=== PATIENT | male | born 1965 | race African-American/Black ===

== ENCOUNTER 2016-07-13 11:48 | Emergency (ER) | payer OTHER ==
[~2016-07-13] VITALS: Ht 190.5 cm; Wt 108.9 kg
[~2016-07-13 11:48] MED LIST: BACTRIM DS TAB1 EACH PO; CIPRO500 M1 PO; DICLOFENAC SODI75 M2 PO; MEDROL4 M2 PO; PEPCID20 M1 PO; PYRIDIUM200 M1 PO
[2016-07-13 11:56] VITALS: BP 160/99
--- NOTE | 2016-07-13 14:29 | ED SKIN/ALLERGY COMPLAINT ---
History of Present Illness General Chief Complaint: Skin Rash/ Abcess Stated Complaint: ?ABSCESS UNDER LEFT ARMPIT Source: patient Exam Limitations: no limitations Vital Signs & Intake/Output Vital Signs & Intake/Output Vital Signs Date Time Temp Pulse Resp B/P Pulse O2 O2 Flow FiO2 Ox Delivery Rate 07/13 1156 98.2 101 18 160/99 99 Room Air Allergies Coded Allergies: No Known Allergies (12/19/15) Reconcile Medications Amoxicillin 500 MG CAPSULE 1 CAP PO TID INFECTION Famotidine (Pepcid) 20 MG TABLET 1 TAB PO BID ALLERGY Methylprednisolone. (Medrol) 4 MG TAB.DS.PK 1 DP PO AD INFLAMMATION 6 on day 1 then reduce by one tablet daily until gone Sulfamethoxazole/Trimethoprim (Bactrim Ds Tablet) 800 MG-160 MG TABLET 1 TAB PO BID INFECTION Triage Note: 51 Y/O MALE C/O "ABCESS UNDER L ARM"; STATES "IT HAS BEEN THERE A FEW DAYS AND NOW I HAVE PAIN IN MY ARM". DENIES DRAINAGE. AFEBRILE. Triage Nurses Notes Reviewed? yes HPI: L AXILLARY SWELLING, TENDERNESS, MILD PAIN. STARTED A FEW DAYS AGO, GETTING WORSE. PAIN RADIATING DOWN THE ARM. NO FEVER, NO FLU LIKE ILLNESS. HX OF 1 ABCESS IN THE PAST THAT NEEDED I AND D IN THE GROIN. NO TX THUS FAR. WORSE WITH PALPATION. Past History Travel History Traveled to [place] past 21 day No Medical History Any Pertinent Medical History? 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 No Review of Systems Review of Systems Constitutional: Reports: see HPI. EENTM: Reports: no symptoms. Respiratory: Reports: no symptoms. Cardiovascular: Reports: no symptoms. GI: Reports: no symptoms. Genitourinary: Reports: no symptoms. Musculoskeletal: Reports: no symptoms. Skin: Reports: see HPI. Neurological/Psychological: Reports: no symptoms. Hematologic/Endocrine: Reports: no symptoms. Immunologic/Allergic: Reports: no symptoms. All Other Systems: Reviewed and Negative Physical Exam Physical Exam General Appearance: well developed/nourished Comments: Well-developed well-nourished no apparent distress. HEENT: Atraumatic, extraocular motion intact Neck: Supple, no lymphadenopathy Back: Nontender Respiratory: No respiratory distress Extremities: No edema, full range of motion Neuro: Alert and oriented x3 Psych: Mood affect normal, normal memory normal judgment. Skin: Warm and dry, no rash on exposed skin Left axillary region with 3 x 2 centimeter area of fluctuance and tenderness, firmness consistent with deep abscess. No surrounding erythema. Mild axillary lymphadenopathy noted. Severe tender palpation of the abscess Progress Differential Diagnosis: abscess/cellulitis Plan of Care: Orders Procedure Date/time Status TRUNK AREA CULTURE 07/13 1433 Active Microbiology 07/13 1500 TRUNK: Culture & Sensitivity - RECD 07/13 1500 TRUNK: Gram Stain - RECD Departure Departure Disposition: HOME OR SELF CARE Condition: Stable Clinical Impression Primary Impression: Abscess of axilla, left Referrals: PATIENT HAS NO PRIMARY CARE DR (PCP/Family) Additional Instructions: Watch for signs of worsening infection, redness, swelling, discharge, pain. Return with any concerns. Take antibiotics as directed and apply warm compresses Departure Forms: Customer Survey General Discharge Information Prescriptions: Current Visit Scripts Amoxicillin 1 CAP PO TID #9 CAP Sulfamethoxazole/Trimethoprim (Bactrim Ds Tablet) 1 TAB PO BID #6 TAB Procedures Incision and Drainage Site: LEFT AXILLARY REGION Blade Size: 15 I & D Procedure: Yes: betadine prep. No: sterile drapes applied, sterile dressing applied, wick placed. Progress: Left axillary I&D was performed small amount of purulent discharge was expressed , this was cultured. Wound irrigated Gloria clamp to break up loculations. Sterile dressing applied. Patient tolerated well without complications.
[2016-07-13] MEDS ORDERED: BACTRIM DS TAB1 EACH PO (15:11)
[2016-07-13] MEDS ORDERED: AMOXICILLIN500 M2 PO (15:11)
== END 2016-07-13 15:20 ==
LOC: ERH 11:48
DX: L02.412 Cutaneous abscess of left axilla (principal)
CPT/HCPCS: 87184; 87070; 87147

== ENCOUNTER 2017-06-22 23:08 | Observation (INO) | payer OTHER ==
[~2017-06-22] VITALS: Ht 193 cm; Wt 103.6 kg
[~2017-06-22 23:08] MED LIST changes: +AMOXICILLIN500 M2 PO
[2017-06-22 23:57] LABS: ABSOLUTE BASOPHIL COUNT 0 /CUMM (0.0-0.2); ABSOLUTE EOSINOPHIL COUNT 0.3 /CUMM (0.0-0.7); ABSOLUTE GRANULOCYTE CT 4.3 /CUMM (1.4-6.5); ABSOLUTE LYMPH COUNT 2.2 /CUMM (1.2-3.4); ABSOLUTE MONOCYTE COUNT 0.6 /CUMM (0.10-0.60); BASOPHIL % 0.4 % (0.0-2.0); EOSINOPHIL % 3.4 % (0-5); GRANULOCYTE % 57.9 % (42.2-75.2); MEAN CORPUSCULAR HGB 27.9 PG (27.0-31.0); MEAN CORPUSCULAR VOLUME 84.6 FL (80.0-94.0); MEAN PLATELET VOLUME 8.2 FL (7.4-10.4); PLATELET COUNT 231 /CUMM (130-400); RBC DISTRIBUTION WIDTH 13.6 % (11.5-14.5); RED BLOOD CELL CT 4.25 /CUMM (4.70-6.10); WHITE BLOOD CELL COUNT 7.5 /CUMM (4.8-10.8)
--- NOTE | 2017-06-23 00:20 | ED GENERAL ADULT ---
See Addendum History of Present Illness General Chief Complaint: General Adult Stated Complaint: "NOT FEELING WELL" Source: patient Exam Limitations: no limitations Vital Signs & Intake/Output Vital Signs & Intake/Output Vital Signs Date Time Temp Pulse Resp B/P B/P Pulse O2 O2 Flow FiO2 Mean Ox Delivery Rate 06/23 113 97.9 74 20 126/80 06/23 113 97.9 74 18 126/80 99 Room Air 06/23 0010 96.9 72 18 119/78 99 Room Air Allergies Coded Allergies: No Known Allergies (12/19/15) Reconcile Medications Amoxicillin 500 MG CAPSULE 1 CAP PO TID INFECTION Famotidine (Pepcid) 20 MG TABLET 1 TAB PO BID ALLERGY Methylprednisolone. (Medrol) 4 MG TAB.DS.PK 1 DP PO AD INFLAMMATION 6 on day 1 then reduce by one tablet daily until gone Sulfamethoxazole/Trimethoprim (Bactrim Ds Tablet) 800 MG-160 MG TABLET 1 TAB PO BID INFECTION Triage Note: SEE NURSES NOTES. Triage Nurses Notes Reviewed? yes Onset: Gradual Duration: week(s): Timing: recent history Injury Environment: home Severity: mild No Modifying Factors: none Modifying Factors: Worsens With: movement. Associated Symptoms: left arm pit pain, worse with movement HPI: 51 yo gentleman with 7 days of intermittent palpitations which would last several seconds, left shoulder and arm pain, worse with movement, and one episode of left jaw pain. He also notes a painful lymph node in his left axilla. He notes that, "Sometimes I was feel my heart race really quickly." Throughout these symptoms, he never developed chest pain. He notes no dyspnea, fever, chills, cough, wheeze, syncopal symptoms. Past History Travel History Traveled to [place] past 21 day No Medical History Any Pertinent Medical History? 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 No Review of Systems Review of Systems Constitutional: Reports: no symptoms. EENTM: Reports: no symptoms. Respiratory: Reports: no symptoms. Cardiovascular: Reports: no symptoms. GI: Reports: no symptoms. Genitourinary: Reports: no symptoms. Musculoskeletal: Reports: no symptoms. Skin: Reports: no symptoms. Neurological/Psychological: Reports: no symptoms. Hematologic/Endocrine: Reports: no symptoms. Immunologic/Allergic: Reports: no symptoms. All Other Systems: Reviewed and Negative Physical Exam Physical Exam General Appearance: well developed/nourished, no apparent distress Head: atraumatic, normal appearance Eyes: Bilateral: normal appearance, PERRL, EOMI. Ears, Nose, Throat: normal pharynx, normal ENT inspection Neck: normal inspection, supple, full range of motion Respiratory: normal breath sounds, chest non-tender, no respiratory distress, quiet respiration, lungs clear Cardiovascular: regular rate/rhythm Gastrointestinal: normal bowel sounds, soft, non-tender, no organomegaly Back: normal inspection, normal range of motion Extremities: normal inspection, normal capillary refill, normal range of motion, no edema, left axilla with 1cm easily movable tender lymph node. no sign of active infection Neurologic/Psych: no motor/sensory deficits, awake, alert, oriented x 3 Skin: intact, normal color, warm/dry Core Measures ACS in differential dx? No CVA/TIA Diagnosis: No Sepsis Present: No Sepsis Focused Exam Completed? No Progress Differential Diagnoses I considered the following diagnoses in my evaluation of the patient: muscle pain, dysrythmia vs other. Plan of Care: Orders Procedure Date/time Status Nothing by Mouth 06/23 B Active EKG 06/23 0240 Active Patient Data 06/23 0140 Active Saline Lock 06/[address] in observation 06/23 0044 Active Misc Message 06/23 0044 Active ED Holding Orders 06/23 0044 Active Vital Signs 06/23 0044 Active Code Status 06/23 0044 Active Intake & Output 06/23 0013 Active Lab Add-on Test 06/23 UNK Active THYROID STIMULATING HORMONE 06/22 2342 Active PHOSPHORUS 06/22 2342 Active MAGNESIUM 06/22 2342 Active D-DIMER 06/22 2335 Complete TROPONIN LEVEL 06/22 2325 Active COMPREHENSIVE METABOLIC PANEL 06/22 2325 Active CBC WITHOUT DIFFERENTIAL 06/22 232 Complete EKG 06/22 2325 Active Laboratory Tests 06/22/17 2342: Anion Gap 14, Estimated GFR > 60, BUN/Creatinine Ratio 14.0, Glucose 102 H, Calcium 9.1, Phosphorus Pending, Magnesium Pending, Total Bilirubin 0.3, AST 17, ALT 26, Alkaline Phosphatase 59, Troponin I < 0.01, Total Protein 7.1, Albumin 4.1, Globulin 3.0, Albumin/Globulin Ratio 1.4, TSH Pending, D-Dimer High Sensitivty < 200, CBC w Diff NO MAN DIFF REQ, RBC 4.25 L, MCV 84.6, MCH 27.9, RDW 13.6, MPV 8.2, Gran % 57.9, Lymphocytes % 29.8, Monocytes % 8.5, Eosinophils % 3.4, Basophils % 0.4, Absolute Granulocytes 4.3, Absolute Lymphocytes 2.2, Absolute Monocytes 0.6, Absolute Eosinophils 0.3, Absolute Basophils 0, PUBS MCHC 33.0 Diagnostic Imaging: Viewed by Me: Radiology Read. Discussed w/RAD: Radiology Read. CXR Impression: no acute abnormality, no infiltrates, normal size heart, normal mediastinum, PATIENT: ABIODUN FULLER PRESENT AGE: 51 PATIENT ACCOUNT NO: [id number] : 66 LOCATION: [facility] ORDERING PHYSICIAN: Diallo Malhotra MD SERVICE DATE: 06/23/17 EXAM TYPE: RAD - XRY- PORTABLE CHEST XRAY EXAMINATION: XR PORTABLE CHEST CLINICAL INFORMATION: Palpitations COMPARISON: None TECHNIQUE: Portable frontal view of the chest was obtained. FINDINGS: Cardiac leads overlie the chest. Lung volumes are low. No consolidation, edema, or effusion. No pneumothorax. The cardiomediastinal silhouette is within normal limits. No acute osseous abnormality. IMPRESSION: No acute pulmonary findings. DICTATED BY: Richard Rodrigues MD DATE/TIME DICTATED: 06/23/1740 DEAD MAIL CHECKER:THAD DATE/TIME TRANSCRIBED:06/23/1740 CONFIDENTIAL, DO NOT COPY WITHOUT APPROPRIATE AUTHORIZATION. <Electronically signed in Other Vendor System> SIGNED BY: Ravi PORTILLO,Richard 06/23/1744 Initial ED EKG: nsr, no acute changes Departure Departure Disposition: HOME OR SELF CARE Condition: Stable Clinical Impression Primary Impression: Palpitations Secondary Impressions: Ventricular tachycardia (paroxysmal) Referrals: Elle Lima APRN (PCP/Family) Departure Forms: Customer Survey General Discharge Information Observation Note Spoke With: Timothy PORTILLO PHD,Robert Rhodes Physician Advisor Notified: ANGELA MEJIA DO Place Patient In: Non-ED OBS Care Area Rationale for Observation: My rational for observation is as follows . 06/23/17, 0:46... discussed with dr. geller... pt had 10 beat run of v-tach. he suggests lopressor 5mg iv with lopressor 25mg bid.... pt merits serial trops/ekg , cards eval in AM. Critical Care Note Critical Care Note Critical Care Time: 30-74 min
--- NOTE | 2017-06-23 00:45 | RADIOLOGY REPORT ---
EXAMINATION: XR PORTABLE CHEST CLINICAL INFORMATION: Palpitations COMPARISON: None TECHNIQUE: Portable frontal view of the chest was obtained. FINDINGS: Cardiac leads overlie the chest. Lung volumes are low. No consolidation, edema, or effusion. No pneumothorax. The cardiomediastinal silhouette is within normal limits. No acute osseous abnormality. IMPRESSION: No acute pulmonary findings.
--- NOTE | 2017-06-23 02:10 | History & Physical ---
Alisa PORTILLO,[facility] 06/23/17 0209: General Information and HPI MD Statement: I have seen and personally examined ABIODUN BELTRAN and documented this H&P. The patient is a 51 year old M who presented with a patient stated chief complaint of [palpitations]. Source of Information: patient Exam Limitations: no limitations History of Present Illness: Mr. Beltran is a 51-year-old gentleman with no significant past medical history presents with palpitations which started this Sunday. According to the patient, he was in his usual state of health until this Sunday when he started feeling his heart racing on and off, mostly while driving or with exertion, associated with one episode of left arm and some flickering in his lips later this evening that got him worried and he decided to come to the ER. Also reports slight shortness of breath and abdominal pain. Denies any chest pain, syncope, diaphoresis, nausea, vomiting, blurry vision, cough, sore throat, postnasal drip, tremors or history of heart diseases. He had similar symptoms couple of years ago but that resolved on its own and no workup was done at that time. Patient also reports recent ongoing stress at work and using marijuana, last smoke was yesterday, which made his symptoms worse. Per the patient's , he drinks a lot of soda and caffeine every day. Allergies/Medications Allergies: Coded Allergies: No Known Allergies (12/19/15) Home Med list Amoxicillin 500 MG CAPSULE 1 CAP PO TID INFECTION Famotidine (Pepcid) 20 MG TABLET 1 TAB PO BID ALLERGY Methylprednisolone. 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 Home Who Do You Live With? spouse Smoking Status: Current Everyday Smoker ETOH Use: occasional use Illicit Drug Use: marijuana Functional Ability ADLs Independent: dressing, eating, toileting, bathing. Ambulation: independent IADLs Independent: shopping, housework, finances, food prep, telephone, transportation , medication admin. Review of Systems Review of Systems Constitutional: Reports: no symptoms. EENTM: Reports: no symptoms. Cardiovascular: Reports: palpitations. Respiratory: Reports: short of breath. GI: Reports: no symptoms. Genitourinary: Reports: no symptoms. Musculoskeletal: Reports: no symptoms. Skin: Reports: no symptoms. Neurological/Psychological: Reports: no symptoms. Hematologic/Endocrine: Reports: no symptoms. Immunologic/Allergic: Reports: no symptoms. All Other Systems: Reviewed and Negative Exam & Diagnostic Data Last 24 Hrs of Vital Signs/I&O Vital Signs Date Time Temp Pulse Resp B/P B/P Pulse O2 O2 Flow FiO2 Mean Ox Delivery Rate 06/23 0349 98.4 60 18 118/62 98 Room Air 06/23 0114 97.9 74 20 126/80 06/23 0114 97.9 74 18 126/80 99 Room Air 06/23 0010 96.9 72 18 119/78 99 Room Air Intake & Output 06/23 0800 06/23 0000 06/22 1600 Intake Total 0 Output Total 300 Balance -300 Intake, Oral 0 Output, Urine 300 Patient 228 lb Weight Weight Reported by Patient Measurement Method Physical Exam General Appearance Alert, Oriented X3, Cooperative, No Acute Distress Skin No Rashes, No Breakdown HEENT Atraumatic, PERRLA, EOMI, Mucous Membr. moist/pink Neck Supple, No JVD, No thryomegaly Cardiovascular Regular Rate, Normal S1, Normal S2 Lungs Clear to Auscultation, Normal Air Movement Abdomen Normal Bowel Sounds, Soft, No Tenderness Extremities No Clubbing, No Cyanosis, No Edema, Normal Pulses Last 24 Hrs of Labs/Sean: Laboratory Tests 06/23/17 0410: Urine Opiates Screen < 100.00, Methadone Screen < 40, Barbiturate Screen < 60, Ur Phencyclidine Scrn < 6.00, Amphetamines Screen < 100, U Benzodiazepines Scrn < 85, Urine Cocaine Screen < 50, Urine Cannabis Screen 72.40 H 06/23/17 0240: Troponin I Cancelled 06/22/17 2342: Anion Gap 14, Estimated GFR > 60, BUN/Creatinine Ratio 14.0, Glucose 102 H, Calcium 9.1, Phosphorus 3.6, Magnesium 1.9, Total Bilirubin 0.3, AST 17, ALT 26, Alkaline Phosphatase 59, Troponin I < 0.01, Total Protein 7.1, Albumin 4.1, Globulin 3.0, Albumin/Globulin Ratio 1.4, TSH 0.881, D-Dimer High Sensitivty < 200, CBC w Diff NO MAN DIFF REQ, RBC 4.25 L, MCV 84.6, MCH 27.9, RDW 13.6, MPV 8.2, Gran % 57.9, Lymphocytes % 29.8, Monocytes % 8.5, Eosinophils % 3.4, Basophils % 0.4, Absolute Granulocytes 4.3, Absolute Lymphocytes 2.2, Absolute Monocytes 0.6, Absolute Eosinophils 0.3, Absolute Basophils 0, PUBS MCHC 33.0 Diagnostic Data EKG Results Normal sinus rhythm with left ventricular hypertrophy and left anterior fascicular block Heart rate 66 QTC 420 CXR Results IMPRESSION: No acute pulmonary findings. Assessment/Plan Assessment: Mr. Beltran is a 51-year-old gentleman with no significant past medical history presents with palpitations which started this Sunday. A/P; 1. Sustained ventricular tachycardia; patient was found to have a 10 beat run of V. 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 - Will observe the patient to telemetry floor for 24-48 hours. - Dr. Aguirre was called by ED who suggested starting the patient on Cardizem, 5 mg IV and 25 mg by mouth twice a day. - We will repeat troponins and EKG(first set is negative) - Echocardiogram to rule out any structural heart disease. - Will order mutation, phosphorous, potassium and TSH levels. - Urine toxicology(history of marijuana use) DVT prophylaxis; subcutaneous Lovenox and ALPS Patient is full code As Ranked By This Provider Problem List: 1. Ventricular tachycardia (paroxysmal) Core Measures/Misc (02/25) Acute Coronary Syndrome ACS Diagnosis: No Congestive Heart Failure Congestive Heart Failure Diagnosis No Cerebrovascular Accident CVA/TIA Diagnosis: No VTE (View Protocol) VTE Risk Factors Age>40 No Mechanical VTE Prophylaxis d/t N/A MechProphylax Ordered No VTE Pharm Prophylaxis d/t NA PharmProphylax ordered Sepsis (View protocol) Sepsis Present: No Jayda PORTILLO,[facility] 06/23/17 0301: General Information and HPI MD Statement: I have seen and personally examined ABIODUN BELTRAN and documented this H&P. The patient is a 51 year old M who presented with a patient stated chief complaint of [shortness of breath, palpitation]. Resident Review Statement Resident Statement: examined this patient, discussed with audit intern, agreed with audit intern, discussed with family, reviewed EMR data (avail) Other Findings: Mr. Beltran is 51 year old -Israeli male with no significant past medical history of chief complain of palpitation and shortness of breath. Patient reported that since Sunday he has been experiencing on and off episodes of palpitation, muscle cramps in the chest and left shoulder cramps, fasiculation around his lips, dizziness that occurred more with exertion, relieved by rest. This morning patient have some symptoms however relieved after he had a bowel movement, later in the evening around 8:30 PM he started to have the symptoms again and decided to come to ED for evaluation since he had it for the whole week. Patient denied any real chest pain, dizziness, blurry vision, syncopal attacks. Patient reported similar episodes 2 years ago, didn't seek any medical attention that that time. He reported ongoing stress (his truck is broken and can keep up with his job), smoked marijuana yesterday and his symptoms was "very bad" and stopped smoking right away. Every day smoker 3-4 cigarettes per day for the last 30 years however used to be heavy smoker 2 years ago with one pack per day, 4-5 days alcohol drinking beer. No family history of MIs, abnormal heart rhythm or sudden . 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 Patient was ordered metoprolol 5 mg IV but he refused to take IV medication and was given Lopressor 25 mg by mouth once. EKG showed sinus rhythm 66 bpm with left axis deviation, right anterior fascicular block, no ST changes, QTC 420 Problem list #Sustained ventricular tachycardia with no history of CAD or structural heart disease #Left armpit mass/abscess Plan -Admit to telemetry floor -Vitals every shift -Follow up magnesium, potassium and phosphorus and replete as needed -Obtain TSH level -Initial troponin EKG are negative, will obtain another set of troponins and EKG -Give Lopressor 25 mg by mouth for sustained ventricular tachycardia wide QRS complexes more than 6 beats -Echocardiogram -Cardiology recommendation -Urine toxicology -Obtain surgery consultation for armpit mass/abscess, patient reported previous past medical history of similar lesion that was surgically managed -DVT prophylaxis Lovenox -Code full -Diet regular Cm PORTILLO,Dmitry Lim 06/23/17 1554: Attending MD Review Statement Attending Statement Attending MD Statement: examined this patient, discuss w/resident/PA/CUT OFF SAWYER, agreed w/resident/PA/CUT OFF SAWYER, discussed with family, reviewed EMR data (avail), discussed with nursing, discussed with case mgmt, reviewed images, amended to note Attending Assessment/Plan: The patient's 16-year-old male who is admitted to the hospital with complaints of palpitations. On the monitor, the patient has intermittent atrial and ventricular ectopy but was reportedly noted to have a 10 beat run of nonsustained wide complex tachycardia in the emergency room prior to admission. The patient remains mildly symptomatically. He denies any other cardiovascular symptoms. Recommendations: -Continue as outlined by the medical staff. -Serial troponins -ECG tonight and tomorrow -Echocardiogram tomorrow -Continue beta blockers -Assuming that the patient remains stable with no further arrhythmias, the patient can likely be discharged in 24 hours for further outpatient evaluation which would include a pharmacologic nuclear stress test, etc.
[2017-06-23 04:30] VITALS: BP 110/70
[2017-06-23 08:41] VITALS: BP 120/80
[2017-06-23 09:06] LABS: PT 12.3 SEC (9.4-12.5); PTT 37 SEC (25-37)
[2017-06-23 09:13] LABS: ABSOLUTE BASOPHIL COUNT 0 /CUMM (0.0-0.2); ABSOLUTE EOSINOPHIL COUNT 0.3 /CUMM (0.0-0.7); ABSOLUTE GRANULOCYTE CT 3.8 /CUMM (1.4-6.5); ABSOLUTE LYMPH COUNT 2.7 /CUMM (1.2-3.4); ABSOLUTE MONOCYTE COUNT 0.5 /CUMM (0.10-0.60); BASOPHIL % 0.5 % (0.0-2.0); EOSINOPHIL % 3.5 % (0-5); GRANULOCYTE % 52.2 % (42.2-75.2); MEAN CORPUSCULAR HGB CONC 32.7 G/DL (33.0-37.0); MEAN CORPUSCULAR VOLUME 85.4 FL (80.0-94.0); MEAN PLATELET VOLUME 8.7 FL (7.4-10.4); PLATELET COUNT 234 /CUMM (130-400); RBC DISTRIBUTION WIDTH 14.3 % (11.5-14.5); RED BLOOD CELL CT 4.33 /CUMM (4.70-6.10); WHITE BLOOD CELL COUNT 7.3 /CUMM (4.8-10.8)
[2017-06-23 14:47] VITALS: BP 110/78
[2017-06-23 22:33] VITALS: BP 108/70
[2017-06-24 07:09] VITALS: BP 112/68
[2017-06-24 08:02] LABS: ABSOLUTE BASOPHIL COUNT 0.1 /CUMM (0.0-0.2); ABSOLUTE EOSINOPHIL COUNT 0.4 /CUMM (0.0-0.7); ABSOLUTE GRANULOCYTE CT 3.4 /CUMM (1.4-6.5); ABSOLUTE LYMPH COUNT 2.8 /CUMM (1.2-3.4); ABSOLUTE MONOCYTE COUNT 0.6 /CUMM (0.10-0.60); BASOPHIL % 0.7 % (0.0-2.0); GRANULOCYTE % 46.8 % (42.2-75.2); MEAN CORPUSCULAR HGB 27.6 PG (27.0-31.0); MEAN CORPUSCULAR HGB CONC 32.3 G/DL (33.0-37.0); MEAN CORPUSCULAR VOLUME 85.3 FL (80.0-94.0); MEAN PLATELET VOLUME 8.4 FL (7.4-10.4); PLATELET COUNT 257 /CUMM (130-400); RBC DISTRIBUTION WIDTH 13.8 % (11.5-14.5); RED BLOOD CELL CT 4.57 /CUMM (4.70-6.10); WHITE BLOOD CELL COUNT 7.3 /CUMM (4.8-10.8)
[2017-06-24 10:34] VITALS: BP 112/68
--- NOTE | 2017-06-24 12:10 | Patient Discharge Instructions ---
Discharge Instructions General Discharge Information You were seen/treated for: Ventricular tachycardia Watch for these problems: Palpitations, chest pain, shortness of breath, fever Special Instructions: Please take all medications as directed. Please follow-up with Dr. Aguirre, cardiology, for Holter monitor and stress test as an outpatient. Please follow- up with your primary care doctor. Diet Continue normal diet: Yes Activity Full Activity/No Limits: Yes Acute Coronary Syndrome Inclusion Criteria At DC or during hospital stay patient has or had the following: ACS DIAGNOSIS No Discharge Core Measures Meds if any: Prescribed or Continued at Discharge Meds if any: NOT Prescribed or Continued at Discharge Congestive Heart Failure Inclusion Criteria At DC or during hospital stay patient has or had the following: CHF DIAGNOSIS No Discharge Core Measures Meds if any: Prescribed or Continued at Discharge Meds if any: NOT Prescribed or Continued at Discharge Cerebrovascular accident Inclusion Criteria At DC or during hospital stay patient has or had the following: CVA/TIA Diagnosis No Discharge Core Measures Meds if any: Prescribed or Continued at Discharge Meds if any: NOT Prescribed or Continued at Discharge Venous thromboembolism Inclusion Criteria VTE Diagnosis No VTE Type NONE VTE Confirmed by (Test) NONE Discharge Core Measures - Per Current guidelines, there needs to be overlap - treatment for the first 5 days of Warfarin therapy. - If discharged on Warfarin prior to 5 days of - overlap therapy, the patient will need to be - assessed for post discharge needs including - *Post discharge parental anticoagulation - *Warfarin and/or parental anticoagulation education - *Follow up date to check INR post discharge At least 5 days overlap therapy as Inpatient No Meds if any: Prescribed or Continued at Discharge Note: Overlap Therapy is Warfarin and Anticoagulant Meds if any: NOT Prescribed or Continued at Discharge
--- NOTE | 2017-06-25 08:10 | ECHOCARDIOGRAM REPORT ---
ABIODUN FULLER Age: 51 : 1965 Gender: M Exam Date: 06/24/2017 10:24 Exam Location: [address] Ht (in): 76 Wt (lb): 228 BSA: 2.37 BP: 112 / 60 Ordering Physician: Inna Montelongo MD Referring Physician: Robert Aguirre MD, PhD Technologist: Laya Chakraborty [facility] Room Number: 188 Indications: VENTRICULAR TACHYCARDIA Rhythm: Sinus Technical Quality: good FINDINGS Left Ventricle Normal left ventricular size, wall thickness and systolic function with no obvious regional wall motion abnormalities. Normal left ventricular diastolic filling pattern for age. The ejection fraction is visually estimated at 70%. Right Ventricle The right ventricle is normal in size and function. Right Atrium The right atrium is normal in size. Left Atrium The left atrium is normal in size. The interatrial septum is intact. Mitral Valve The mitral valve demonstrates mild annular calcification with normal function. There is trace mitral regurgitation. Aortic Valve Structurally normal aortic valve without significant sclerosis or stenosis. There is no aortic regurgitation. Tricuspid Valve The tricuspid valve is normal in structure and function. There is no tricuspid regurgitation. Pulmonic Valve Structurally normal pulmonic valve. There is trace pulmonic regurgitation. Pericardium Normal pericardium without effusion. No pleural effusion. Great Vessels Normal aortic root dimension. The aortic arch and great vessels are well seen and are normal. CONCLUSIONS 1. Normal EF of 70%. 2. Trace mitral regurgitation. 3. Trace pulmonic regurgitation. Robert Aguirre M.D. (Electronically Signed) Final Date: 25 June 2017 08:09 MEASUREMENTS (Male / Female) Normal Values 2D ECHO LV Diastolic Diameter PLAX 4.8 cm 4.2 - 5.9 / 3.9 - 5.3 cm LV Systolic Diameter PLAX 3.2 cm 2.1 - 4.0 cm LV Fractional Shortening PLAX 33.3 % 25 - 46 % LV Ejection Fraction 2D Teich 61.9 % IVS Diastolic Thickness 1.1 cm LVPW Diastolic Thickness 1.1 cm LV Relative Wall Thickness 0.5 RV Internal Dim ED PLAX 3.2 cm 1.9 - 3.8 cm LVOT Diameter 2.1 cm Aortic Root Diameter 2.8 cm LA Systolic Diameter LX 3.7 cm 3.0 - 4.0 / 2.7 - 3.8 cm LA Volume 41.0 cm 18 - 58 / 22 - 52 cm Ascending Aorta Diameter 2.9 cm DOPPLER AV Peak Velocity 126.0 cm/s AV Peak Gradient 6.4 mmHg AV Mean Velocity 84.5 cm/s AV Mean Gradient 3.0 mmHg AV Velocity Time Integral 22.9 cm LVOT Peak Velocity 94.0 cm/s LVOT Peak Gradient 3.5 mmHg LVOT Mean Velocity 63.8 cm/s LVOT Mean Gradient 2.0 mmHg LVOT Velocity Time Integral 19.2 cm LVOT Stroke Volume 66.5 cm AV Area Cont Eq vti 2.9 cm AV Area Cont Eq pk 2.6 cm MV Peak Velocity 80.5 cm/s MV Peak Gradient 2.6 mmHg MV Mean Velocity 45.8 cm/s MV Mean Gradient 1.0 mmHg Mitral E Point Velocity 56.3 cm/s Mitral A Point Velocity 44.9 cm/s Mitral E to A Ratio 1.3 MV PHT Velocity 83.8 cm/s MV Deceleration [place] 286.0 cm/s MV Pressure Half Time 87.9 ms MV Area PHT 2.5 cm MV Deceleration Time 415.0 ms PV Peak Velocity 103.0 cm/s PV Peak Gradient 4.2 mmHg PV Mean Velocity 67.9 cm/s PV Mean Gradient 2.0 mmHg PV Velocity Time Integral 22.4 cm LV E' Lateral Velocity 14.5 cm/s Mitral E to LV E' Lateral Ratio 3.9 LV E' Septal Velocity 11.0 cm/s Mitral E to LV E' Septal Ratio 5.1
== END 2017-06-24 13:13 ==
LOC: ERH 23:08 → ERHI 06-23 00:44 → ENRESERV 06-23 02:01 → 1NO 06-23 04:38 → ENPENDDIS 06-24 12:10 → 1NO 06-24 13:13
PROVIDERS: Emergency Medicine; Student in an Organized Health Care Education/Training Program
DX: R07.89 Other chest pain (principal); R00.2 Palpitations; Z87.442 Personal history of urinary calculi; F17.200 Nicotine dependence, unspecified, uncomplicated; R06.02 Shortness of breath; D72.829 Elevated white blood cell count, unspecified; K21.9 Gastro-esophageal reflux disease without esophagitis; K59.00 Constipation, unspecified; F10.20 Alcohol dependence, uncomplicated; I47.2 Ventricular tachycardia
CPT/HCPCS: 36415; 71045; 80307; 82436; 93005; 93010; 93306; G0378; J1650

== ENCOUNTER 2017-06-25 16:08 | Observation (INO) | payer OTHER ==
[~2017-06-25] VITALS: Ht 190.5 cm; Wt 103.4 kg
[2017-06-25 16:28] LABS: ABSOLUTE BASOPHIL COUNT 0 /CUMM (0.0-0.2); ABSOLUTE EOSINOPHIL COUNT 0.2 /CUMM (0.0-0.7); ABSOLUTE GRANULOCYTE CT 6.9 /CUMM (1.4-6.5); ABSOLUTE LYMPH COUNT 3.6 /CUMM (1.2-3.4); ABSOLUTE MONOCYTE COUNT 0.8 /CUMM (0.10-0.60); BASOPHIL % 0.4 % (0.0-2.0); EOSINOPHIL % 1.9 % (0-5); GRANULOCYTE % 59.8 % (42.2-75.2); HEMATOCRIT 40.5 % (42-52); MEAN CORPUSCULAR HGB 27.9 PG (27.0-31.0); MEAN CORPUSCULAR HGB CONC 32.7 G/DL (33.0-37.0); MEAN CORPUSCULAR VOLUME 85.3 FL (80.0-94.0); MEAN PLATELET VOLUME 8.3 FL (7.4-10.4); PLATELET COUNT 281 /CUMM (130-400); RBC DISTRIBUTION WIDTH 13.9 % (11.5-14.5); RED BLOOD CELL CT 4.74 /CUMM (4.70-6.10)
[2017-06-25 16:39] LABS: PTT 37 SEC (25-37)
[2017-06-25 17:00] LABS: WHITE BLOOD CELL COUNT 11.5 /CUMM (4.8-10.8)
--- NOTE | 2017-06-25 17:20 | ED CARDIAC/CP/PALPITATIONS ---
History of Present Illness General Chief Complaint: Chest Pain Stated Complaint: CHEST PAIN Source: patient, old records Exam Limitations: no limitations Vital Signs & Intake/Output Vital Signs & Intake/Output Vital Signs Date Time Temp Pulse Resp B/P B/P Pulse O2 O2 Flow FiO2 Mean Ox Delivery Rate 06/26 0625 97.3 58 20 115/63 98 Room Air 06/26 0624 97.3 58 20 115/63 98 Room Air 06/26 0617 97.3 50 20 115/63 98 Room Air 06/25 2212 96.8 59 18 120/66 98 Room Air 06/25 2211 59 120/66 06/25 1936 98.0 62 19 120/62 99 Room Air 06/25 1616 97.4 92 18 122/82 99 Room Air Room Air ED Intake and Output 06/26 0000 06/25 1200 Intake Total Output Total Balance Patient 228 lb Weight Weight Reported by Patient Measurement Method Allergies Coded Allergies: No Known Allergies (12/19/15) Reconcile Medications Famotidine (Pepcid) 20 MG TABLET 1 TAB PO BID ALLERGY Triage Note: PT TO ED WITH C/O LEFT FACIAL NUMBNESS, AND CHEST PRESSURE/SHARP "CRAMPING TYPE OF PAIN". PT STATING "I JUST LEFT HERE, I WAS ADMITTED SUNDAY NIGHT, I WENT HOME YESTERDAY FOR HEART PROBLEMS". Triage Nurses Notes Reviewed? yes Onset: Abrupt Duration: gone now, intermittent Quality/Severity: dull, ingestion Location: substernal Radiation: no radiation Activities at Onset: EATING HPI: Patient is a 51-year-old male with a past medical history of kidney stones who was recently admitted and discharged from [facility] yesterday for concerns of sustained ventricular tachycardia who was placed in telemetry observation by Dr. Aguirre old records indicate the patient was given metoprolol initially however Cardizem was administered patient had unremarkable echocardiogram repeat troponins were unremarkable and patient was safely discharged for follow-up for outpatient stress test and Holter monitoring states that today he was in his normal state of health patient ATE A kowalski egg and cheese sandwich for breakfast and approximately 20-30 minutes after had acute onset of substernal chest indigestion that lasted approximately 30 minutes after significant bowel movements and belching episodes, no blood no melena noted patient states that for lunch approximately 1300 he ate a tuna salad similar symptoms that occurred patient had significant belching episodes that completely resolved self his symptoms. Patient currently is asymptomatic denies any fever chills back pain arm pain jaw pain nausea vomiting. Denies any significant NSAID use patient drinks alcohol approximately 3-4 beers every other day (Levy Robledo) Past History Travel History Traveled to [place] past 21 day No Medical History Any Pertinent Medical History? 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 No (Levy Robledo) Review of Systems Review of Systems Constitutional: Reports: no symptoms. EENTM: Reports: no symptoms. Respiratory: Reports: see HPI. Denies: cough, short of breath. Cardiovascular: Reports: see HPI. GI: Reports: see HPI. Genitourinary: Reports: no symptoms. Musculoskeletal: Reports: no symptoms. Skin: Reports: no symptoms. Neurological/Psychological: Reports: no symptoms. Hematologic/Endocrine: Reports: no symptoms. Immunologic/Allergic: Reports: no symptoms. All Other Systems: Reviewed and Negative (Levy Robledo) Physical Exam Physical Exam General Appearance: no apparent distress, alert Head: atraumatic Eyes: Bilateral: normal appearance, PERRL. Ears, Nose, Throat: hearing grossly normal Neck: normal inspection Respiratory: normal breath sounds, chest non-tender, no respiratory distress Cardiovascular: regular rate/rhythm Peripheral Pulses: 2+ radial (R) Gastrointestinal: normal bowel sounds, soft, non-tender Extremities: normal inspection Skin: intact, normal color, warm/dry Core Measures ACS in differential dx? Yes CVA/TIA Diagnosis No Sepsis Present: No Sepsis Focused Exam Completed? No (Levy Robledo) Progress Differential Diagnosis: AMI, aortic dissection, atrial fibrillation, cholecystitis, CHF/pulm edema, costochondritis, hyperkalemia, hypovolemia, hyperthyroid, hyperventilation, intracranial hemorrhage, musculoskeletal pain, myocarditis, pancreatitis, pericarditis, pneumonia, pneumothorax, PSVT, pulmonary embolism, PUD/GERD, PVCs/PACs, respiratory failure, sepsis, unstable angina, V-fib/V-Tach, WPW syndrome Plan of Care: Orders Procedure Date/time Status Nothing by Mouth 06/26 B Active THYROID STIMULATING HORMONE 06/26 0600 Complete MAGNESIUM 06/26 0600 Complete LIPID PANEL 06/26 0600 Complete GLYCOSYLATED HGB 06/26 0600 Complete FREE T4 06/26 0600 Complete CBC WITHOUT DIFFERENTIAL 06/26 0600 Complete BASIC ELECTROLYTES PLUS BUN&CR 06/26 0600 Complete TROPONIN LEVEL 06/26 0400 Complete EKG 06/26 0400 Active Teach/Educate 06/26 0104 Active Pain Treatment and Response 06/26 0104 Active Nutritional Intake, Monitor 06/26 0104 Active Patient Care Conference 06/26 0104 Active Activity/Ambulation 06/26 0104 Active STRESS TEST W/NUCLEAR IMAGING 06/26 UNK Complete Regular Diet 06/25 D Complete TROPONIN LEVEL 06/25 2200 Complete EKG 06/25 2200 Active EKG 06/25 1936 Active Intake & Output 06/25 1926 Active RAPID VIRAL INFLUENZA A 06/25 1841 Active URINALYSIS 06/25 1841 Active Pathway - chart 06/25 1834 Active House Staff 06/25 1834 Active Patient Data 06/25 1834 Active Code Status 06/[address] in observation 06/25 1815 Active Vital Signs 06/25 1815 Active Code Status 06/25 1815 Complete Patient Data 06/25 1748 Active Add-on Test (ER Only) 06/25 1744 Active Add-on Test (ER Only) 06/25 1716 Active LIPASE 06/25 1620 Complete D-DIMER 06/25 1620 Complete AMYLASE 06/25 1620 Complete Telemetry/Secretary To The Vice President 06/25 1611 Active TROPONIN LEVEL 06/25 1611 Complete PARTIAL THROMBOPLASTIN TIME 06/25 1611 Complete PROTHROMBIN TIME 06/25 1611 Complete MAGNESIUM 06/25 1611 Complete COMPREHENSIVE METABOLIC PANEL 06/25 1611 Complete CBC WITHOUT DIFFERENTIAL 06/25 1611 Complete EKG 06/25 1609 Active VTE Mechanical Prophylaxis 06/25 UNK Active Vital Signs 06/25 UNK Active Telemetry/Secretary To The Vice President 06/25 UNK Active Nursing Misc 06/25 UNK Active Current Medications Sig/Gisele Start time Last Medication Dose Stop Time Status Admin Aspirin 81 MG DAILY 06/26 1000 AC (Aspirin) Enoxaparin Sodium 40 MG DAILY 06/26 1000 AC (Lovenox) Metoprolol Tartrate 25 MG BID 06/25 2200 AC (Lopressor) Acetaminophen 650 MG Q6P PRN 06/25 1844 AC (Tylenol) Acetaminophen 1,000 MG Q6P PRN 06/25 1844 AC (Ofirmev) Omeprazole 40 MG DAILY AC 06/25 1844 AC 06/26 (Prilosec) 07 Polyethylene Glycol 17 GM DAILY PRN 06/25 1844 AC (Miralax) Senna/Docusate Sodium 2 TAB DAILY PRN 06/25 1844 AC 06/25 (Senokot S) 2020 Calcium Carbonate 500 MG DAILY 06/25 1834 AC 06/25 (TUMS) 184 Laboratory Tests 06/26/17 0613: Anion Gap 16, Estimated GFR > 60, BUN/Creatinine Ratio 15.6, Hemoglobin A1c 5.3, Magnesium 1.9, Triglycerides 73, Cholesterol 142, LDL Cholesterol, Calc 94, HDL Cholesterol 34 L, Cholesterol/HDL Ratio 4, TSH 0.716, Free T4 1.40, CBC w Diff NO MAN DIFF REQ, RBC 4.64 L, MCV 84.8, MCH 28.1, RDW 13.8, MPV 8.0, Gran % 48.4 , Lymphocytes % 36.5, Monocytes % 9.5 H, Eosinophils % 5.2 H, Basophils % 0.4, Absolute Granulocytes 4.0, Absolute Lymphocytes 3.0, Absolute Monocytes 0.8 H, Absolute Eosinophils 0.4, Absolute Basophils 0, PUBS MCHC 33.1 06/26/17 0600: Magnesium Cancelled, TSH Cancelled, Free T4 Cancelled 06/26/17 0400: Troponin I < 0.01 06/25/17 2210: Troponin I < 0.01 06/25/17 1620: Anion Gap 15, Estimated GFR > 60, BUN/Creatinine Ratio 13.3, Glucose 102 H, Calcium 9.7, Magnesium 1.9, Total Bilirubin 0.6, AST 17, ALT 27, Alkaline Phosphatase 75, Troponin I < 0.01, Total Protein 8.1, Albumin 4.7, Globulin 3.4, Albumin/Globulin Ratio 1.4, Amylase 59, Lipase 94, PT 13.0 H, INR 1.24 H, APTT 37, D-Dimer High Sensitivty 229, CBC w Diff NO MAN DIFF REQ, RBC 4.74, MCV 85.3, MCH 27.9, RDW 13.9, MPV 8.3, Gran % 59.8, Lymphocytes % 31.3, Monocytes % 6.6, Eosinophils % 1.9, Basophils % 0.4, Absolute Granulocytes 6.9 H, Absolute Lymphocytes 3.6 H, Absolute Monocytes 0.8 H, Absolute Eosinophils 0.2, Absolute Basophils 0, PUBS MCHC 32.7 L Microbiology 06/25 1840 NASOPHARYN: Influenza Virus A & B Rapid Smear - COLB Patient's initial EKG was unchanged from previous patient currently resting comfortable at bedside no apparent distress denies any symptoms monitoring specialist placed showing normal sinus rhythm, discussed patient with Dr. Aguirre who advised patient to be placed in telemetry observation for concerns of angina , Pepcid was administered in the emergency room. Discussed observation plan with patient who agrees and has no questions. Diagnostic Imaging: Viewed by Me: Radiology Read. CXR Impression: no acute abnormality, no infiltrates, normal size heart Initial ED EK BPM, NSR LVH, ANTERIOR FASCICULAR BLOCK Prior EKG: unchanged Comments: PATIENT: ABIODUN FULLER PRESENT AGE: 51 PATIENT ACCOUNT NO: [id number] : 66 LOCATION: [facility] ORDERING PHYSICIAN: Levy ORTIZ SERVICE DATE: 06/25/17 EXAM TYPE: RAD - XRY-CHEST XRAY, TWO VIEWS EXAMINATION: CHEST 2 VIEWS CLINICAL INFORMATION: Chest pain. COMPARISON: None. TECHNIQUE: PA and lateral views of the chest were obtained. FINDINGS: The cardiac silhouette is not enlarged. The mediastinal and hilar contours are unremarkable. There are neither pleural effusions nor pneumothoraces. There are no consolidations. The osseous structures are unremarkable. IMPRESSION: No evidence for acute disease. DICTATED BY: Dmitry Cox MD DATE/TIME DICTATED:06/25/171923 PHOTOGRAPHIC DOUBLE:THAD (Levy Robledo) Departure Departure Time of Disposition: 1746 Disposition: STILL A PATIENT Condition: Stable Clinical Impression Primary Impression: Chest pain Referrals: Elle Lima APRN (PCP/Family) Departure Forms: Customer Survey General Discharge Information Observation Note Spoke With: Timothy PORTILLO PHD,Robert Rhodes Physician Advisor Notified: SHOAIB MEJIA DO Place Patient In: Non-ED OBS Care Area Rationale for Observation: My rational for observation is as follows [patient requires telemetry observation repeat blood work repeat cardiac enzymes telemetry monitoring cardiology consultation possible GI consultation outpatient treatment at this time due to recent admission of sustain ventricular tachycardia and patient's risk factors that the concern of ACS rule out is WARRANTED]. (Levy Robledo) PA/COLD WATER MACHINE OPERATOR Co-Sign Statement Statement: ED Attending supervision documentation- [x] I saw and evaluated the patient. I have also reviewed all the pertinent lab results and diagnostic results. I agree with the findings and the plan of care as documented in the PA's/COLD WATER MACHINE OPERATOR's documentation. [] I have reviewed the ED Record and agree with the PA's/COLD WATER MACHINE OPERATOR's documentation. [] Additions or exceptions (if any) to the PAs/COLD WATER MACHINE OPERATOR's note and plan are summarized below: [] (Carlos RODRIGUEZ,Shoaib Aguero) Critical Care Note Critical Care Note Critical Care Time: non-applicable (Levy Robledo)
--- NOTE | 2017-06-25 17:55 | History & Physical ---
Yosef PORTILLO,Kelsey 06/25/17 6141: General Information and HPI MD Statement: I have seen and personally examined ABIODUN FULLER and documented this H&P. The patient is a 51 year old M who presented with a patient stated chief complaint of [chest pressure]. Source of Information: patient, old records Exam Limitations: no limitations History of Present Illness: Patient is 51-year-old gentleman with no significant past medical history. The patient presented to [facility] ED on 06/25 with chief complaint of chest pressure. -The patient had a recent stay at [facility] from 06/23 to 06/24 because of nonsustained ventricular tachycardia. Patient was placed in observation and later discharged to follow-up with cardiology for Holter monitoring and stress test. -Today the patient is presenting with left-sided chest pressure. The patient started feeling this pressure in the morning after eating a egg sandwich and later went to work. In the afternoon he consumed Tuna sandwich and was lying down watching television when he felt it coming again. As per patient it is not a pain it's more like a cramp. It is nonradiating, relieved by burping, passing gas and passing stool. As per patient it is usually aggravated by consumption of food. He reports consumption of large quantity of fatty meal/fast food and constipation for past few days. He states that his pain has resolved after coming to ED after having a big burp. No family history of cardiac disease. Patient denies any nausea, vomiting or diarrhea. He denies any fevers or chills , palpitation like symptoms or lightheadedness. -1 year ago patient had an axillary abscess and was treated with antibiotics for that. Patient reports that he has started to feel axillary swelling again and also reports a scrotal swelling. -Of note patient has been smoking cigarettes since his teenage years. Has been cutting down for past 2-3 years and currently smokes about 3 cigarettes every day. He reports daily alcohol consumption, consuming large amount of coffee as well and metallic taste in mouth sometimes. He admits to recreational marijuana use. -Of note patient does not follow up with any PCP and will be provided a referral on discharge Allergies/Medications Allergies: Coded Allergies: No Known Allergies (12/19/15) Home Med list Aspirin (Aspirin*) 81 MG TAB.CHEW 81 MG PO DAILY HEART Famotidine (Pepcid) 20 MG TABLET 1 TAB PO BID ALLERGY Metoprolol Tartrate 25 MG TABLET 25 MG PO BID HEART Observation Initial Note - I have personally examined ABIODUN FULLER on 06/25/17 at 1802. 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 Home Who Do You Live With? spouse Primary Language: Yemeni Smoking Status: Current Some Day Smoker ETOH Use: heavy use Functional Ability ADLs Independent: dressing, eating, toileting, bathing. Ambulation: independent IADLs Independent: shopping, housework, finances, food prep, telephone, transportation , medication admin. 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 EENTM: Reports: no symptoms. Cardiovascular: Reports: chest pain. Denies: edema, palpitations, peripheral edema. Respiratory: Reports: no symptoms. Denies: hemoptysis, short of breath, stridor. GI: Reports: no symptoms. Genitourinary: Denies: discharge, dysuria, frequency, hematuria. Musculoskeletal: Reports: no symptoms. Skin: Reports: no symptoms. Exam & Diagnostic Data Last 24 Hrs of Vital Signs/I&O Vital Signs Date Time Temp Pulse Resp B/P B/P Pulse O2 O2 Flow FiO2 Mean Ox Delivery Rate 06/25 1616 97.4 92 18 122/82 99 Room Air Room Air Physical Exam General Appearance Alert, Oriented X3, Cooperative, No Acute Distress HEENT Atraumatic, PERRLA, EOMI, Mucous Membr. moist/pink Neck Supple, No JVD, No thryomegaly, +2 Carotid Pulse wo Bruit, No LAD Lymphatic Axillary nl, Cervical nl Cardiovascular Normal S1, Normal S2, No Murmurs, Gallops, Rubs Lungs Clear to Auscultation, Normal Air Movement Abdomen Normal Bowel Sounds, Soft, No Tenderness, No Hepatospenomegaly Neurological Normal Gait, Normal Speech, Normal Tone, Cranial Nerves 3-12 NL Extremities No Clubbing, No Edema, Normal Pulses, No Tenderness/Swelling Reproductive (MALE) small scrotal pimple Last 24 Hrs of Labs/Sean: Laboratory Tests 06/25/17 1620: Anion Gap 15, Estimated GFR > 60, BUN/Creatinine Ratio 13.3, Glucose 102 H, Calcium 9.7, Magnesium 1.9, Total Bilirubin 0.6, AST 17, ALT 27, Alkaline Phosphatase 75, Troponin I < 0.01, Total Protein 8.1, Albumin 4.7, Globulin 3.4, Albumin/Globulin Ratio 1.4, Amylase 59, Lipase 94, PT 13.0 H, INR 1.24 H, APTT 37, D-Dimer High Sensitivty 229, CBC w Diff NO MAN DIFF REQ, RBC 4.74, MCV 85.3, MCH 27.9, RDW 13.9, MPV 8.3, Gran % 59.8, Lymphocytes % 31.3, Monocytes % 6.6, Eosinophils % 1.9, Basophils % 0.4, Absolute Granulocytes 6.9 H, Absolute Lymphocytes 3.6 H, Absolute Monocytes 0.8 H, Absolute Eosinophils 0.2, Absolute Basophils 0, PUBS MCHC 32.7 L Microbiology 06/25 1841 NASOPHARYN: Influenza Virus A & B Rapid Smear - COLB Diagnostic Data EKG Results sinus rhythm, rate 78, regular, left anterior fascicular block, left ventricle hypertrophy Other Results Echocardiogram 06/24/2017 CONCLUSIONS 1. Normal EF of 70%. 2. Trace mitral regurgitation. 3. Trace pulmonic regurgitation. Assessment/Plan Assessment: Patient is 51-year-old gentleman with no significant past medical history. The patient presented to [facility] on 06/25 with chief complaint of chest pressure. -VS heart rate 92 rest WNL -Pertinent labs WBC count 11.5 H/H 13/40.5. D-dimer less than 229 INR 1.4, BEP, Lfts, amylase lipase wnl -In ED patient received PO omeprazole. -The patient is being placed in observation and is being treated and evaluated for following conditions #Atypical chest pain. Rule out ACS, history of nonsustained ventricular tachycardia His presentation is more consistent with pain related to GI origin. But Patient had a recent admission for a nonsustained ventricular tachycardia, he has risk factor of smoking and alcohol use. ACS needs to be ruled out. * Cardiology consulting Dr. Aguirre. * Patient will be on telemetry monitoring to watch for any arrhythmias * Serial EKG and troponin * We are starting patient on metoprolol 25 mg BID in context of V. tach * He will undergo a stress test tomorrow. Nothing by mouth after midnight and we'll hold the morning dose of metoprolol anticipation of test * We will check TSH, free T4, lipid panel, HbA1c * Patient recently had echocardiogram. No need to repeat. #Leukocytosis White count of 11.5. There are no obvious source of infection patient is afebrile. Patient has history of left axillary abscess which resolved 1 year ago and feels that it's coming again. On examination there is no axillary lymphadenopathy Also reports a small scrotal swelling. On exam it appears to be a small pimple. * Monitored Fever and WBC count curve * Monitor scrotal swelling for any signs of infection. * Monitor patient off antibiotics for now #GERD/Constipation Patient gives history of consumption of aspirin, alcohol, excessive caffeine intake and current every day smoker. He also reports metallic taste in mouth sometimes. * Continue patient on omeprazole and bowel regimen * Patient will require outpatient evaluation by GI #FC/NPO in anticipation of stress test/Lovenox for DVT prophylaxis As Ranked By This Provider Problem List: 1. Chest pain 2. Ventricular tachycardia (paroxysmal) Core Measures/Misc (02/25) Acute Coronary Syndrome ACS Diagnosis: No Last Known EF % 70 Congestive Heart Failure Congestive Heart Failure Diagnosis No Cerebrovascular Accident CVA/TIA Diagnosis: No VTE (View Protocol) VTE Risk Factors Age>40 No Mechanical VTE Prophylaxis d/t N/A MechProphylax Ordered No VTE Pharm Prophylaxis d/t NA PharmProphylax ordered Sepsis (View protocol) Sepsis Present: Stevenson Posey 06/25/17 5574: Resident Review Statement Resident Statement: examined this patient, discussed with internal auditor, agreed with internal auditor, discussed with family, reviewed EMR data (avail), discussed with nursing , discussed with case mgmt, reviewed images, amended to note Other Findings: This is a 16-year-old male with past medical history significant for nephrolithiasis, left armpit abscess, nonsustained V. tach/palpitations, presented with atypical chest pain since afternoon. Patient was recently admitted to [facility] from June 23 to June 25 For atypical chest pain. He was found to have nonsustained V. tach on the monitor. He was given metoprolol and Cardizem. Serial troponin and EKG were negative. Echocardiogram was done which showed ejection fraction 70% with no wall motion abnormalities. EKG showed sinus rhythm and left anterior fascicular block. He was discharged home to follow-up with relief cook as an outpatient for stress test. He is not on any cardiac medications. He went home yesterday, slept overnight. However he reports atypical chest pain this morning after having breakfast. Which lasted for 20-30 minutes, nonexertional chest pain. 5 out of 10, nonradiating, pressure sensation. He relates the chest pain to the breakfast he took. Chest pain was relieved after burping. He reported similar event after having lunch. Chest pain relieved after burping. Denies any heartburn. Denied any palpitations, short of breath, nausea, vomiting, diaphoresis. patient reports constipation for past 1 week. Denies any nausea, vomiting, abdominal pain, diarrhea, urinary symptoms, neurologic symptoms. Denies any upper respiratory tract infection. He continues to smoke 2 or 3 cigarettes a day, alcoholic 3 beers per day, marijuana user. Denies seeing any PCP. --------- Vitals afebrile, heart rate 90, respiratory rate 18, blood pressure 122/82, saturating at 99 on room air. On examination HEENT within normal limits, no JVD, S1-S2 normal, no murmurs, breath sounds normal, abdomen nontender soft, nondistended, no cyanosis clubbing or lower extremity edema. Pertinent labs at the time of admission leukocytosis 11.5, no bands, hemoglobin 13, hematocrit 40, platelet 281. D- dimer negative, INR 1.24, BEP within normal limits. troponin normal Amylase lipase normal.LFT normal. Chest x-ray 06/23 normal EKG showed sinus rhythm, rate 78, regular, left anterior fascicular block, left ventricle hypertrophy. Echo 06/25 showed ejection fraction 70% -- 1. Atypical chest pain Patient presented with chest pain, 5 out of 10, nonradiating, pressure sensation , lasted for 20 minutes, relieved after burping. Denied any shortness of breath , palpitations, nausea, vomiting, sweating, diaphoresis. He has no medical history pertinent for hypertension, diabetes, hyperlipidemia, obesity. However he is a smoker and alcoholic. No family history of heart diseases. However given his frequent chest pain we will place him in the telemetry floor for further workup. -Continuous telemetry monitoring -Serial troponin and EKG -No need for echocardiogram -Cardiology consulted -Nothing by mouth tonight -Treadmill stress test in a.m. -Meanwhile continue metoprolol 25 twice daily given his recent nonsustained V. tach. -Follow-up lipid profile -Follow-up HbA1c and thyroid function tests -Follow-up electrolytes 2. Leukocytosis WBC 11.5 at the time of admission. Denied any shortness of breath, fever, chills, urinary symptoms. No source of infection was found. However will continue to monitor him off antibiotics. 3. GERD continue omeprazole. LFT, amylase lipase normal 4. Constipation Continue bowel regimen as needed 5. History of nonsustained V. tach Give metoprolol 25 to twice daily DVT prophylaxis subcutaneous Lovenox Pain pathway Nothing by mouth tonight for stress test in a.m. Nothing by mouth tonight for stress test in a.m.
--- NOTE | 2017-06-25 19:28 | RADIOLOGY REPORT ---
EXAMINATION: CHEST 2 VIEWS CLINICAL INFORMATION: Chest pain. COMPARISON: None. TECHNIQUE: PA and lateral views of the chest were obtained. FINDINGS: The cardiac silhouette is not enlarged. The mediastinal and hilar contours are unremarkable. There are neither pleural effusions nor pneumothoraces. There are no consolidations. The osseous structures are unremarkable. IMPRESSION: No evidence for acute disease.
[2017-06-26 06:23] LABS: ABSOLUTE BASOPHIL COUNT 0 /CUMM (0.0-0.2); ABSOLUTE EOSINOPHIL COUNT 0.4 /CUMM (0.0-0.7); ABSOLUTE MONOCYTE COUNT 0.8 /CUMM (0.10-0.60); BASOPHIL % 0.4 % (0.0-2.0); EOSINOPHIL % 5.2 % (0-5); GRANULOCYTE % 48.4 % (42.2-75.2); HEMATOCRIT 39.3 % (42-52); MEAN CORPUSCULAR HGB 28.1 PG (27.0-31.0); MEAN CORPUSCULAR HGB CONC 33.1 G/DL (33.0-37.0); MEAN CORPUSCULAR VOLUME 84.8 FL (80.0-94.0); PLATELET COUNT 246 /CUMM (130-400); RBC DISTRIBUTION WIDTH 13.8 % (11.5-14.5); RED BLOOD CELL CT 4.64 /CUMM (4.70-6.10); WHITE BLOOD CELL COUNT 8.3 /CUMM (4.8-10.8)
[2017-06-26 06:24] VITALS: BP 115/63
[2017-06-26 06:25] VITALS: BP 115/63
--- NOTE | 2017-06-26 09:24 | Cons- Cardiology ---
General Information and HPI Consulting Request Date of Consult: 06/26/17 Requested By: Timothy PORTILLO PHD,Robert Rhodes History of Present Illness: This patient is a 51 year old male with history of tobacco abuse who recently presented to the ER for evaluation of palpitations. He was noted to have a run of ventricular tachycardia at that time and underwent an echocardiogram. This study showed a normal EF. He was felt to be at low risk for a malignant ventricular dysrhythmia and was discharged. Abram return to the ER with a left sided, non-radiating chest discomfort associated with eructation. The chest discomfort does not appear to have any clear exertional component to it and there is no associated nausea or vomiting or diaphoresis. The discomfort typically lasts for seconds at a time before resolving He felt that he was constipated and after taking a laxative had loose stools. He continues to have intermittent palpitations. In general, he has no shortness of breath but does have rare episodes of lightheadedness. The patient has noted both chest discomfort and palpitations over the past couple weeks. Prior to that he was doing well. Allergies/Medications Allergies: Coded Allergies: No Known Allergies (12/19/15) Home Med List: Famotidine (Pepcid) 20 MG TABLET 1 TAB PO BID ALLERGY Review of Systems Review of Systems: A review of systems is unremarkable. 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 Home Who Do You Live With? spouse Primary Language: Indonesian Smoking Status: Current Some Day Smoker ETOH Use: heavy use Functional Ability ADLs Independent: dressing, eating, toileting, bathing. Ambulation: independent IADLs Independent: shopping, housework, finances, food prep, telephone, transportation , medication admin. 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 ECHO Results (as available) Date of last Echo 06/25/17 EF% 70 Exam & Diagnostic Data Vital Signs and I&O Vital Signs Date Time Temp Pulse Resp B/P B/P Pulse O2 O2 Flow FiO2 Mean Ox Delivery Rate 06/26 0625 97.3 58 20 115/63 98 Room Air 06/26 0624 97.3 58 20 115/63 98 Room Air 06/26 0617 97.3 50 20 115/63 98 Room Air 06/25 2212 96.8 59 18 120/66 98 Room Air 06/25 2211 59 120/66 06/25 1936 98.0 62 19 120/62 99 Room Air 06/25 1616 97.4 92 18 122/82 99 Room Air Room Air Intake & Output 06/26 1600 06/26 0800 06/26 0000 06/25 1600 06/25 0800 06/25 0000 Intake Total 100 Output Total Balance 100 Intake, Oral 100 Patient 228 lb 228 lb Weight Weight Reported by Patient Measurement Method Physical Exam: General: WD/WN male in NAD; alert and oriented x 3 HEENT: NC/AT, PERRL, EOMI Neck: no JVD, no carotid bruit Heart: RRR with ectopy, no murmur Lungs: clear bilaterally ABdomen: soft, NT, +ve bowel sounds EXtremities: no edema Diagnostic Data EKG Results sinus with inferior T wave inversions and LAFB Assessment/Plan Assessment/Plan * This patient has symptoms consistent with myocardial ischemia and also has reported runs of NSVT. We will rule him out for an KS and risk stratify the patient with a treadmill nuclear stress test. * Begin Lopressor 25mg BID and aspirin. Consult Acknowledgment - Thank you for your consult request.
--- NOTE | 2017-06-26 09:44 | PN-Observation ---
Observation Note Observation Note _ I have personally examined ABIODUN FULLER. him disposition is uncertain at this time. Before a determination can be made, he requires continued observation for the following reasons [atypical chest pain]. Assessment/Plan Assessment: 51-year-old gentleman with no past medical history came to [facility] with complaints of chest pressure and placed under observation to rule out any ACS and to risk stratify him. Assessment and plan * Atypical chest pain-patient serial EKG and troponins are negative. Patient is symptom-free. Patient will be started on aspirin 81 mg daily, Lopressor 25 mg twice a day and we will send him today for nuclear treadmill stress test. Discharge is decided upon the test results. Patient is nothing by mouth for the same. Patient will be seen by Dr. Aguirre today. * TSH-0.716, free T4 1 0.40, HbA1c 5.3, BUN- 14, creatinine 0.9. HDL 34, LDL 94 , total cholesterol 142, triglycerides 73. Code-full code Diet we will advance the diet after he comes back from the stress test. Problem List: 1. Chest pain 2. Palpitations DVT/Prophylaxis: mechanical Discharge Plan Discharge Disposition: home Subjective Follow-up For: Atypical chest pain Complaints: no complaints Tele-Events Since Last Visit: Normal sinus rhythm Subjective: I saw the patient at bedside. He was talking with his over phone. He offered no complaint. He said he passed a lot of gas following laxative. He had one bowel movement last night. He denies chest pain, shortness of breath, abdominal pain, nausea, vomiting, weakness, left arm pain, jaw pain. Review of Systems Constitutional: Reports: no symptoms. Cardiovascular: Reports: no symptoms. Respiratory: Reports: no symptoms. Gastrointestinal: Reports: no symptoms. Genitourinary: Reports: no symptoms. Musculoskeletal: Reports: no symptoms. Skin: Reports: no symptoms. Objective Last 24 Hrs of Vital Signs/I&O Vital Signs Date Time Temp Pulse Resp B/P B/P Pulse O2 O2 Flow FiO2 Mean Ox Delivery Rate 06/26 0625 97.3 58 20 115/63 98 Room Air 06/26 0624 97.3 58 20 115/63 98 Room Air 06/26 0617 97.3 50 20 115/63 98 Room Air 06/25 2211 96.8 59 18 120/66 98 Room Air 06/25 2211 59 120/66 06/25 1936 98.0 62 19 120/62 99 Room Air 06/25 1616 97.4 92 18 122/82 99 Room Air Room Air Intake & Output 06/26 1600 06/26 0800 06/26 0000 Intake Total 100 Output Total Balance 100 Intake, Oral 100 Patient 228 lb 228 lb Weight Weight Reported by Patient Measurement Method Physical Exam General Appearance: Alert, Oriented X3, Cooperative Neck: Supple, No JVD Cardiovascular: Regular Rate, Normal S1, Normal S2, No Murmurs Lungs: Clear to Auscultation, Normal Air Movement Abdomen: Normal Bowel Sounds, Soft Neurological: Normal Speech, Strength at 5/5 X4 Ext Extremities: No Edema Current Medications: Current Medications Sig/Gisele Start time Last Medication Dose Route Stop Time Status Admin Acetaminophen 650 MG Q6P PRN 06/25 1844 AC PO Acetaminophen 1,000 MG Q6P PRN 06/25 184 AC IV Aspirin 81 MG DAILY 06/26 1000 AC PO Calcium Carbonate 500 MG DAILY 06/25 1835 AC 06/25 PO 1848 Enoxaparin Sodium 40 MG DAILY 06/26 1000 AC SC Metoprolol Tartrate 25 MG BID 06/25 2200 AC PO Omeprazole 0 .STK-MED ONE 06/26 0722 DC PO Omeprazole 40 MG DAILY AC 06/25 184 AC 06/26 PO 0726 Omeprazole 0 .STK-MED ONE 06/25 1844 DC PO Omeprazole 20 MG ONCE ONE 06/25 1745 DC 06/25 PO 06/25 1746 1848 Polyethylene Glycol 17 GM DAILY PRN 06/25 184 AC PO Senna/Docusate Sodium 2 TAB DAILY PRN 06/25 184 AC 06/25 PO 2020 Last 24 Hrs of Labs/Mics: Laboratory Tests 06/26/17 0613: Anion Gap 16, Estimated GFR > 60, BUN/Creatinine Ratio 15.6, Hemoglobin A1c 5.3, Magnesium 1.9, Triglycerides 73, Cholesterol 142, LDL Cholesterol, Calc 94, HDL Cholesterol 34 L, Cholesterol/HDL Ratio 4, TSH 0.716, Free T4 1.40, CBC w Diff NO MAN DIFF REQ, RBC 4.64 L, MCV 84.8, MCH 28.1, RDW 13.8, MPV 8.0, Gran % 48.4 , Lymphocytes % 36.5, Monocytes % 9.5 H, Eosinophils % 5.2 H, Basophils % 0.4, Absolute Granulocytes 4.0, Absolute Lymphocytes 3.0, Absolute Monocytes 0.8 H, Absolute Eosinophils 0.4, Absolute Basophils 0, PUBS MCHC 33.1 06/26/17 0600: Magnesium Cancelled, TSH Cancelled, Free T4 Cancelled 06/26/17 0400: Troponin I < 0.01 06/25/17 2210: Troponin I < 0.01 06/25/17 1620: Anion Gap 15, Estimated GFR > 60, BUN/Creatinine Ratio 13.3, Glucose 102 H, Calcium 9.7, Magnesium 1.9, Total Bilirubin 0.6, AST 17, ALT 27, Alkaline Phosphatase 75, Troponin I < 0.01, Total Protein 8.1, Albumin 4.7, Globulin 3.4, Albumin/Globulin Ratio 1.4, Amylase 59, Lipase 94, PT 13.0 H, INR 1.24 H, APTT 37, D-Dimer High Sensitivty 229, CBC w Diff NO MAN DIFF REQ, RBC 4.74, MCV 85.3, MCH 27.9, RDW 13.9, MPV 8.3, Gran % 59.8, Lymphocytes % 31.3, Monocytes % 6.6, Eosinophils % 1.9, Basophils % 0.4, Absolute Granulocytes 6.9 H, Absolute Lymphocytes 3.6 H, Absolute Monocytes 0.8 H, Absolute Eosinophils 0.2, Absolute Basophils 0, PUBS MCHC 32.7 L Microbiology 06/25 1841 NASOPHARYN: Influenza Virus A & B Rapid Smear - COLB
--- NOTE | 2017-06-26 11:41 | Patient Discharge Instructions ---
Discharge Instructions General Discharge Information You were seen/treated for: Atypical chest pain Watch for these problems: In case of chest pain, chest pressure, shortness of breath please go to the nearest ER. Special Instructions: Please follow-up with your primary care provider within 1-2 weeks of discharge. Please follow-up with the perl programmer within 1-2 weeks of discharge Diet Continue normal diet: Yes Recommended Diet: Regular Activity Full Activity/No Limits: No Activity Self Limited: Yes Acute Coronary Syndrome Inclusion Criteria At DC or during hospital stay patient has or had the following: ACS DIAGNOSIS No Discharge Core Measures Meds if any: Prescribed or Continued at Discharge Meds if any: NOT Prescribed or Continued at Discharge Congestive Heart Failure Inclusion Criteria At DC or during hospital stay patient has or had the following: CHF DIAGNOSIS No Discharge Core Measures Meds if any: Prescribed or Continued at Discharge Meds if any: NOT Prescribed or Continued at Discharge Cerebrovascular accident Inclusion Criteria At DC or during hospital stay patient has or had the following: CVA/TIA Diagnosis No Discharge Core Measures Meds if any: Prescribed or Continued at Discharge Meds if any: NOT Prescribed or Continued at Discharge Venous thromboembolism Inclusion Criteria VTE Diagnosis No VTE Type NONE VTE Confirmed by (Test) NONE Discharge Core Measures - Per Current guidelines, there needs to be overlap - treatment for the first 5 days of Warfarin therapy. - If discharged on Warfarin prior to 5 days of - overlap therapy, the patient will need to be - assessed for post discharge needs including - *Post discharge parental anticoagulation - *Warfarin and/or parental anticoagulation education - *Follow up date to check INR post discharge At least 5 days overlap therapy as Inpatient No Meds if any: Prescribed or Continued at Discharge Note: Overlap Therapy is Warfarin and Anticoagulant Meds if any: NOT Prescribed or Continued at Discharge
[2017-06-26] MEDS ORDERED: ASPIRIN81 M4 PO (11:45)
[2017-06-26] MEDS ORDERED: METOPROLOL TART25 M1 PO (11:45)
--- NOTE | 2017-06-26 17:50 | NUCLEAR MEDICINE REPORT ---
EXAMINATION: NM MYOCARDIAL PERFUSION CLINICAL INFORMATION: Chest pain COMPARISON: None TECHNIQUE: A single day myocardial perfusion exam with SPECT was performed. The stress component of this exam was performed following the intravenous administration 27.2 mCi technetium 99m Myoview. This is followed by resting images obtained 3 hours later, following the intravenous ministration 42.6 mCi technetium 99m Myoview. Reconstructions were obtained in standard short, long and horizontal cardiac axis projections. Gated exam was performed as well. FINDINGS: The ventricular cavity is normal in size. There is a small fixed apical defect demonstrated. No significant change is seen between the stress and resting images. The gated images demonstrate normal appearing contractility. Ejection fraction is calculated at 54%. IMPRESSION: Small fixed apical defect. No evidence for ischemia.
== END 2017-06-26 15:26 ==
LOC: ERH 16:08 → ERHI 18:15
PROVIDERS: Hospitalist; Physician Assistant Medical
DX: R07.89 Other chest pain (principal); Z87.442 Personal history of urinary calculi; F12.90 Cannabis use, unspecified, uncomplicated; F17.200 Nicotine dependence, unspecified, uncomplicated; D72.829 Elevated white blood cell count, unspecified; K21.9 Gastro-esophageal reflux disease without esophagitis; K59.00 Constipation, unspecified; Z79.82 Long term (current) use of aspirin; Z79.899 Other long term (current) drug therapy
CPT/HCPCS: 6090; 71046; 78452; 82436; 87804; 87804-59; 93005; 93010; 93016; 93017; A9502; G0378; J0131; J1650; J3490

== ENCOUNTER 2017-07-19 21:54 | Emergency (ER) | payer OTHER ==
[~2017-07-19] VITALS: Ht 191.8 cm; Wt 102.5 kg
[~2017-07-19 21:54] MED LIST changes: +ASPIRIN81 M4 PO; +METOPROLOL TART25 M1 PO
--- NOTE | 2017-07-19 22:34 | ED NECK/BACK PAIN COMPLAINT ---
History of Present Illness General Chief Complaint: Neck/Upper Back Pain/Injury Stated Complaint: NECK SWELLING Source: patient Exam Limitations: no limitations Vital Signs & Intake/Output Vital Signs & Intake/Output Vital Signs Date Time Temp Pulse Resp B/P B/P Pulse O2 O2 Flow FiO2 Mean Ox Delivery Rate 07/20 0002 97.8 67 18 102/53 98 Room Air 07/19 2210 96.8 77 18 113/77 98 Room Air ED Intake and Output 07/20 0000 07/19 1200 Intake Total Output Total Balance Patient 226 lb Weight Weight Reported by Patient Measurement Method Allergies Coded Allergies: No Known Allergies (07/19/17) Reconcile Medications Amoxicillin 875 MG TABLET 1 TAB PO BID parotitis Aspirin (Aspirin*) 81 MG TAB.CHEW 81 MG PO DAILY HEART Famotidine (Pepcid) 20 MG TABLET 1 TAB PO BID ALLERGY Ibuprofen 800 MG TABLET 1 TAB PO TID pain Metoprolol Tartrate 25 MG TABLET 25 MG PO BID HEART Oxycodone HCl/Acetaminophen (Percocet 5-325 MG Tablet) 5 MG-325 MG TABLET 1-2 TAB PO BID pain Triage Note: TRIAGE: PATIENT TO ER FROM HOME W/ GOLFBALL SIZED ROUND SWOLLEN AREA TO R NECK, SUDDEN ONSET 25 MIN STITCH WELDER PER PATIENT. REPORTS +CHEST PRESSURE (EKG ORDERED). S/P ?STENT IN R GROIN YESTERDAY. REPORTS EATING FISH TONIGHT THOUGH DENIES ANY HX ALLERGIC REACTION TO FISH. DENIES RASH/ ITCHING. REPORTS INCREASED SALIVA IN MOUTH THOUGH DENIES TONGUE/ THROAT SWELLING. SPEECH CLEAR. NO ACUTE DISTRESS. +COUGHING IN TRIAGE. ALSO NOTED W/ SWELLING BEGINNING ON L NECK. LUNGS CTA. Triage Nurses Notes Reviewed? yes Onset: Abrupt Duration: hour(s):, constant, continues in ED Timing: recent history HPI: 52-year-old male comes into the emergency room with complaints of some neck swelling. Patient reports that he's had a history of stones in his glands before. He had a cardiac catheterization done yesterday but there was no stents that needed to be placed. Denies any other associated symptoms. Swelling to the right side of the neck. (Patrick Caicedo) Past History Travel History Traveled to [place] past 21 day No Medical History Any Pertinent Medical History? 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 No (Patrick Caicedo) Review of Systems Review of Systems Constitutional: Reports: no symptoms. Eyes: Reports: no symptoms. Ears, Nose, Throat, Mouth: Reports: see HPI. Respiratory: Reports: no symptoms. Cardiovascular: Reports: no symptoms. Gastrointestinal/Abdominal: Reports: no symptoms. Musculoskeletal: Reports: no symptoms. Skin: Reports: no symptoms. Neurological/Psychological: Reports: no symptoms. All Other Systems: Reviewed and Negative (Patrick Caicedo) Physical Exam Physical Exam General Appearance: well developed/nourished, mild distress Head: atraumatic Eyes: Bilateral: normal appearance, EOMI. Ears, Nose, Throat, Mouth: hearing grossly normal, moist mucous membrane Neck: SWELLING RIGHT SUBMANDIBULAR REGION Respiratory: normal breath sounds, no respiratory distress Cardiovascular: regular rate/rhythm Back: normal inspection Extremities: normal range of motion Neurologic/Psych: awake, alert, oriented x 3, normal mood/affect Skin: intact, normal color, warm/dry Core Measures CVA/TIA Diagnosis: No (Patrick Caicedo) Progress Differential Diagnosis: PAROTID GLAND ABSCESS , PAROTITIS, CELLULITIS, ANEURYSM Diagnostic Imaging: Viewed by Me: CT Scan. Discussed w/RAD: CT Scan. Radiology Impression: PATIENT: ABIODUN FULLER PRESENT AGE: 52 PATIENT ACCOUNT NO: [id number] : 66 LOCATION: [facility] ORDERING PHYSICIAN: Patrick ORTIZ SERVICE DATE: 07/19/17 EXAM TYPE: CAT - CT NECK WO IV CONTRAST EXAMINATION: CT NECK WITHOUT CONTRAST CLINICAL INFORMATION: Parotid gland abscess. Swelling in the neck. Patient declined IV contrast COMPARISON: None TECHNIQUE: Axial images obtained noncontrast through the neck. Coronal and sagittal reformatted images are performed at CT scanner DLP: 525.87 mGy-cm FINDINGS: There is edema in the fat planes around the right submandibular gland. No swelling or edema seen around the left submandibular gland. The size of the submandibular gland is similar between the right and left submandibular glands. There is no calcified stone is seen in the submandibular glands nor the floor the mouth. There is a tiny little calcification the right side related to the tonsillar bed., Axial image 227 (3). Edema from the submandibular gland does extend toward the midline around the carotid space and around the right tonsillar bed and extends superficially to the platysma fascial plane. There is no abscess evident however. The parotid glands are symmetric and normal in size and enhancement. The nasopharynx, pharynx, hypopharynx and proximal trachea are open. The epiglottis is normal. No enlargement of the adenoid tissue. The paranasal sinuses are normally aerated. Degenerative spondylosis of cervical spine with disc height narrowing and endplate spurring seen at the lower cervical spine and upper thoracic spine. IMPRESSION: Swelling and edema around the right submandibular gland extending toward the right tonsillar bed but no abscess. Normal parotid gland bilaterally. This critical result was discussed with Dr. Gordon on 07/20/2017, 1:05 AM and it was ascertained that the content and urgency of the report was understood at the time of direct communication. DICTATED BY: Wilbert Naidu MD DATE/TIME DICTATED:49 CASE MANAGEMENT ASSOCIATE:THAD DATE/TIME TRANSCRIBED:07/20/1749 CONFIDENTIAL, DO NOT COPY WITHOUT APPROPRIATE AUTHORIZATION. <Electronically signed in Other Vendor System> SIGNED BY: Wilbert Naidu MD 07/20/17 0110 Initial ED EKG: normal sinus rhythm, rate (70) (Patrick Caicedo) Plan of Care: Orders Procedure Date/time Status CBC WITHOUT DIFFERENTIAL 07/19 2215 Complete BASIC METABOLIC PANEL 07/[address] NECK WO IV CONTRAST 07/19 2215 Active EKG 07/19 2157 Active Laboratory Tests 07/19/172229: Anion Gap 11, Estimated GFR > 60, BUN/Creatinine Ratio 13.3, Glucose 137 H, Calcium 9.0, CBC w Diff NO MAN DIFF REQ, RBC 4.62 L, MCV 86.4, MCH 27.7, MCHC 32.0 L, RDW 14.3, MPV 8.5, Gran % 52.4, Lymphocytes % 36.6, Monocytes % 6.9, Eosinophils % 3.6, Basophils % 0.5, Absolute Granulocytes 4.7, Absolute Lymphocytes 3.3, Absolute Monocytes 0.6, Absolute Eosinophils 0.3, Absolute Basophils 0 (Roscoe PORTILLO,Diallo Dimas) Departure Departure Disposition: HOME OR SELF CARE Condition: Stable Clinical Impression Primary Impression: Submandibular duct obstruction Referrals: Cristofer Cleveland MD (PCP/Family) Additional Instructions: TAKE Percocet and ibuprofen as prescribed. Follow-up with ENT DR. Return if any concerns worsening symptoms. Sour candies at home. Please go over all results of today's visit with your primary care doctor. Contact your primary care doctor to let them know you were here in the emergency room. There may be nonspecific findings which may not be related to your visit today here in the emergency room but may require further evaluation and chronic monitoring by your primary care doctor. If you had a laceration today the chance of foreign body always remains. You should follow-up with your primary care doctor for recheck in 3-5 days for a wound check. If you had an x-ray done there is a chance that a fracture could have been missed on initial read and you should follow-up with your primary care doctor for repeat x-rays if symptoms persist. If your blood pressure was elevated here in the emergency room please have rechecked by [facility] primary care doctor within the next 48. If you were prescribed a narcotic here in the emergency room or any type of controlled substances you're not allowed to drive while taking this medication or operate any type of heavy machinery. Narcotics can make you feel lightheaded dizziness nausea and can cause constipation. You may need to picking belt operator a stool softener. Thank you for choosing [facility] emergency room. Please return to the emergency room immediately if you have any other concerns worsening of symptoms. Departure Forms: Customer Survey General Discharge Information Prescriptions: Current Visit Scripts Oxycodone HCl/Acetaminophen (Percocet 5-325 MG Tablet) 1-2 TAB PO BID #10 TAB Ibuprofen 1 TAB PO TID #30 TAB Amoxicillin 1 TAB PO BID #14 TAB Comments Patient started on oral antibiotics. Patient told to do sour candies at home. Follow-up with ENT doctor. Follow-up with PCP. Return if any concerns worsening symptoms. He clinically looks well. In no apparent distress. (Patrick Caicedo) PA/ASSOCIATE BRAND MANAGER Co-Sign Statement Statement: ED Attending supervision documentation- [X] I saw and evaluated the patient. I have also reviewed all the pertinent lab results and diagnostic results. I agree with the findings and the plan of care as documented in the PA's/ASSOCIATE BRAND MANAGER's documentation. [] I have reviewed the ED Record and agree with the PA's/ASSOCIATE BRAND MANAGER's documentation. [] Additions or exceptions (if any) to the PAs/ASSOCIATE BRAND MANAGER's note and plan are summarized below: [] (Roscoe PORTILLO,Diallo Dimas)
[2017-07-19 22:39] LABS: ABSOLUTE BASOPHIL COUNT 0 /CUMM (0.0-0.2); ABSOLUTE EOSINOPHIL COUNT 0.3 /CUMM (0.0-0.7); ABSOLUTE GRANULOCYTE CT 4.7 /CUMM (1.4-6.5); ABSOLUTE LYMPH COUNT 3.3 /CUMM (1.2-3.4); ABSOLUTE MONOCYTE COUNT 0.6 /CUMM (0.10-0.60); BASOPHIL % 0.5 % (0.0-2.0); EOSINOPHIL % 3.6 % (0-5); GRANULOCYTE % 52.4 % (42.2-75.2); HEMATOCRIT 39.9 % (42-52); MEAN CORPUSCULAR HGB 27.7 PG (27.0-31.0); MEAN CORPUSCULAR VOLUME 86.4 FL (80.0-94.0); MEAN PLATELET VOLUME 8.5 FL (7.4-10.4); PLATELET COUNT 231 /CUMM (130-400); RBC DISTRIBUTION WIDTH 14.3 % (11.5-14.5); RED BLOOD CELL CT 4.62 /CUMM (4.70-6.10); WHITE BLOOD CELL COUNT 8.9 /CUMM (4.8-10.8)
[2017-07-20 00:02] VITALS: BP 102/53
[2017-07-20] MEDS ORDERED: IBUPROFEN800 M1 PO ×2 (00:59→01:03)
[2017-07-20] MEDS ORDERED: PERCOCET 5-3251 EACH PO ×2 (00:59→01:03)
[2017-07-20] MEDS ORDERED: AMOXICILLIN875 M1 PO (01:04)
--- NOTE | 2017-07-20 01:10 | CT SCAN REPORT ---
EXAMINATION: CT NECK WITHOUT CONTRAST CLINICAL INFORMATION: Parotid gland abscess. Swelling in the neck. Patient declined IV contrast COMPARISON: None TECHNIQUE: Axial images obtained noncontrast through the neck. Coronal and sagittal reformatted images are performed at CT scanner DLP: 525.87 mGy-cm FINDINGS: There is edema in the fat planes around the right submandibular gland. No swelling or edema seen around the left submandibular gland. The size of the submandibular gland is similar between the right and left submandibular glands. There is no calcified stone is seen in the submandibular glands nor the floor the mouth. There is a tiny little calcification the right side related to the tonsillar bed., Axial image 227 (3). Edema from the submandibular gland does extend toward the midline around the carotid space and around the right tonsillar bed and extends superficially to the platysma fascial plane. There is no abscess evident however. The parotid glands are symmetric and normal in size and enhancement. The nasopharynx, pharynx, hypopharynx and proximal trachea are open. The epiglottis is normal. No enlargement of the adenoid tissue. The paranasal sinuses are normally aerated. Degenerative spondylosis of cervical spine with disc height narrowing and endplate spurring seen at the lower cervical spine and upper thoracic spine. IMPRESSION: Swelling and edema around the right submandibular gland extending toward the right tonsillar bed but no abscess. Normal parotid gland bilaterally. This critical result was discussed with Dr. Gordon on 07/20/2017, 1:05 AM and it was ascertained that the content and urgency of the report was understood at the time of direct communication.
== END 2017-07-20 01:13 ==
LOC: ERH 21:54
PROVIDERS: Physician Assistant Medical
DX: K11.5 Sialolithiasis (principal)
CPT/HCPCS: 93005; 93010